=== PATIENT | male | born 2005 ===

== ENCOUNTER 2025-01-15 10:21 | Emergency (ER) | payer OTHER, SELFPAY ==
[2025-01-15] VITALS (11 sets, daily range): BP systolic 119–134; BP diastolic 46–80; PULSE 52–70; RESP 14–20; TEMP 36.6–36.9; O2SAT 95–100; BMI 24.3
--- NOTE | ~2025-01-15 | XR_ITS ---
CLINICAL HISTORY: ? dislocation, wrestling 2 view left shoulder Comparison: None Findings: Anterior inferior left glenohumeral dislocation. No definite fracture. No erosions. No radiopaque foreign body. IMPRESSION: Anterior inferior left glenohumeral dislocation. No evidence of fracture. This document has been electronically signed by: Josse Lozano MD on 01/15/2025 10:57:42
--- NOTE | ~2025-01-15 | XR_ITS ---
CLINICAL HISTORY: Postreduction --- Additional Notes or Special Instructions: EXAM DONE. DR. EDUARDO Peñaloza PPROVED IMAGING. IMAGES UNABLE TO SEND DUE TO NETWORK DOWNTIME 2 view left shoulder Comparison: CR - XR SHOULDER LT MIN 2V - 01/15/25 10:37 EDT Findings: Two films were obtained. The later film demonstrates a normal glenohumeral articulation. No acute fracture. No significant joint space narrowing. No radiopaque foreign body. IMPRESSION: 1. Satisfactory reduction of the glenohumeral dislocation. 2. No acute fracture. This document has been electronically signed by: Arlen Weeks DO on 01/15/2025 14:25:14
--- NOTE | 2025-01-15 11:06 | ED_ITS ---
HPI - Extremity Problem General Chief complaint: Extremity Injury, Upper Stated complaint: dislocated shoulder Time Seen by Provider: 01/15/25 10:54 Source: patient Mode of arrival: ambulatory Limitations: no limitations History of Present Illness ED Provider: DR. Erwin HPI Narrative: 19-year-old male came in for evaluation of the left shoulder dislocation, patient was doing [employer] training and wrestling patient felt popping sensation in the left shoulder after the was not able to move his left shoulder. Never had history of shoulder dislocation in the past. Related Data Allergies Allergy/AdvReac Type Severity Reaction Status Date / Time Penicillins Allergy Hives Verified 01/15/25 10:27 Review of Systems 2 Review of Systems: All other systems are reviewed and are negative Constitutional: Reports as per HPI and Reports no additional constitutional complaints Eyes: Reports as per HPI and Reports no additional eye complaints Reports system reviewed and no additional complaints, except as documented Cardiovascular: Reports as per HPI and Reports no additional cardiovascular complaints Respiratory: Reports as per HPI and Reports no additional respiratory complaints Gastrointestinal: Reports as per HPI and Reports no additional gastrointestinal complaints Genitourinary: Reports no additional female genitourinary complaints Musculoskeletal: Reports no additional musculoskeletal complaints Skin/Breast: Reports system reviewed and no additional complaints, except as docu Psychiatric: Reports no additional psychiatric complaints Endocrine: Reports no additional endocrine complaints Hematologic/Lymphatic: Reports no additional hematologic/lymphatic complaints Allergic/Immunologic: Reports no additional allergic/immunologic complaints Reports system reviewed and no additional complaints, except as documented and Reports Abnormal speech present [facility] Social History Social History Advance Directives: No Advance Directives Information Provided: No Do you have a plan to hurt others: No Plan Physical Exam 2 Vital Signs: Vital Signs: Last Vital Signs Temp 98.4 F 01/15/25 13:24 Pulse 67 01/15/25 13:24 Resp 16 01/15/25 13:24 BP 123/46 L 01/15/25 13:24 Pulse Ox 99 01/15/25 13:24 O2 Del Method Room Air 01/15/25 13:24 Oxygen Flow Rate 100 01/15/25 12:17 BMI result Body Mass Index 24.3 Vital signs have been reviewed and appear to be correct. Blood pressure elevated. Heart rate normal. Respiratory rate normal. Temperature normal. Oxygen saturation normal. Appearance: Alert. Oriented X3. No acute distress. Head: Normal external exam. Normocephalic. Atraumatic. No Nelson signs noted. No raccoon eyes noted Eyes: PERRLA. EOMI. Conjunctiva and sclera normal. Eyelids normal. ENT: TM's Normal. Pharynx normal. Uvula midline. Moist mucous membranes. No trismus noted. No drooling noted. No muffled voice noted. Neck: Normal inspection. Neck supple. FROM. No adenopathy. Thyroid Normal. No meningeal signs. No neck mass noted. CVS: Normal heart rate and rhythm. Heart sound normal. No murmurs noted. Pulses normal throughout. Respiratory: No respiratory distress. Painless inspiration. Breath sounds normal. No wheezes/rales/rhonchi noted. Chest nontender. No accessory muscle usage noted or decreased air movement noted. Abdomen: Soft and nontender. Bowel sounds normal in all 4 quadrants. No distention noted. No organomegaly noted. No visible injury noted. Back: No CVA tenderness. Full range of motion noted. Skin: Skin warm and dry. Normal skin color. Normal skin turgor. No rashes/lesions/lacerations noted. Extremities: Left shoulder: Held in adduction position unable to abduct, anterior fullness, neurovascularly intact. Neuro: Oriented X 3. Cranial nerve exam: II-XII are grossly intact No motor deficit. No sensory deficit. Reflexes normal. Course Reevaluation(s) Reevaluation #1: S/p left shoulder closed reduction with conscious sedation, patient tolerated the procedure well, patient is AAO x3 now, feels better after reduction, patient was placed in shoulder immobilizer NSAIDs, follow-up with ortho. Time: 12:28 Medications Administered Discontinued Medications Generic Name Dose Route Start Last Admin Trade Name Freq PRN Reason Stop Dose Admin Propofol 100 mg 01/15/25 11:08 01/15/25 12:43 Propofol 200 Mg/20 Ml Vial IVPUSH 01/15/25 11:09 100 mg ONCE ONE Administration Medical Decision Making Differential Diagnosis Differential Diagnoses: The differential diagnosis associated with the presentation includes (Left shoulder dislocation, left shoulder fracture, neurovascular compromise.) Admission/Observation Consideration of admission/observation: Escalation of care including admission/observation considered Lab Data MDM Lab Attestation statement: I reviewed the patient's lab results. 01/15/25 11:33 01/15/25 11:33 Labs: Lab Results 01/15/25 Range/Units 11:33 WBC 6.3 (4.8-10.8) X10*3/uL RBC 5.08 (4.60-5.80) X10*6/uL Hgb 14.7 (14.0-18.0) g/dl Hct 43.9 (42.0-52.0) % MCV 86.4 (80.0-98.0) fL MCH 28.9 (27.0-33.0) pg MCHC 33.5 (31.0-36.0) g/dl RDW 12.6 (11.0-16.0) % Plt Count 197 (160-400) X10*3/uL MPV 9.4 (9.4-12.4) fL Immature Gran % (Auto) 0.3 (0.0-0.4) % Neut % (Auto) 54.3 (45-73) % Lymph % (Auto) 33.9 (20-40) % [place]ette % (Auto) 5.6 (2-11) % Eos % (Auto) 5.1 H (0-4) % Baso % (Auto) 0.8 (0-2) % Lymph # (Auto) 2.1 (1.2-4.9) X10*3/uL [place]ette # (Auto) 0.4 (0.1-1.2) X10*3/uL Eos # (Auto) 0.3 (0.0-0.4) X10*3/uL Baso # (Auto) 0.1 (0.0-0.2) X10*3/uL Abs Immat Gran (auto) 0.02 (0.00-0.03) X10*3/uL Absolute Neuts (auto) 3.4 (2.0-8.3) x10*3/uL Absolute Nucleated RBC 0.000 (0.0-0.012) X10*3/uL Nucleated RBC % (auto) 0.0 (0.0-0.2) /100WBC Independent Interpretation I performed an independent interpretation of an: Plain X-Ray (Left shoulder: A anterior-inferior shoulder dislocation with good post reduction x-ray.) Radiology Impression Discussion of test interpretation with radiology: I have reviewed the radiologist's reading. Procedures Orthopedic Joint Reduction Joint #1: Time Out Performed: Yes Side: left Joint Reduction Location: shoulder Analgesia: procedural sedation Shoulder Technique Used (if applicable): traction/counter-traction and scapula manipulation Technique used: direct manipulation Post-reduction neuro exam: intact Post-reduction vascular: intact Post Reduction X-Ray Obtained: Yes Post Reduction X-Ray Results: reduced Splint Applied: Yes Patient Tolerated Procedure: well Procedural Sedation Indication: fracture/dislocation reduction ASA Class: I Mallampati Class: I Time of Last PO Intake: 12:34 Preparation: cardiac cath lab radiology technologist applied, pulse oximeter, capnometry used, supplemental O2 applied and suction/airway equipment at bedside IV Propofol dose (mg): 200 Patient Tolerated Procedure: well Complications: none Discharge Plan Discharge Clinical Impression: Anterior dislocation of left shoulder Patient Disposition: Home, Self-Care Instructions: Shoulder Dislocation (ED) Referrals: Edvin Calvin MD [Physician] - Stand Alone Forms: Work/School Release Interventions: ED Discharge Assessment Last Done: 01/15/25 13:24 Discharge Date/Time: 01/15/25 13:25 Print Language: Barbadian
[2025-01-15 11:38] LABS: MANUAL DIFF FLAG NO
[2025-01-15 11:40] LABS: Basophils Absolute Auto 0.1 X10*3/uL (0.0-0.2); Basophils Percent Auto 0.8 % (0-2); Eosinophils Absolute Auto 0.3 X10*3/uL (0.0-0.4); Eosinophils Percent Auto 5.1 % (0-4); Hematocrit 43.9 % (42.0-52.0); Hemoglobin 14.7 g/dl (14.0-18.0); Imm Gran Abs Auto 0.02 X10*3/uL (0.00-0.03); Imm Gran Pct Auto 0.3 % (0.0-0.4); Lymphocytes Absolute Auto 2.1 X10*3/uL (1.2-4.9); Lymphocytes Percent Auto 33.9 % (20-40); Mean Corpuscular HGB Conc 33.5 g/dl (31.0-36.0); Mean Corpuscular Hemoglobin 28.9 pg (27.0-33.0); Mean Corpuscular Volume 86.4 fL (80.0-98.0); Mean Platelet Volume 9.4 fL (9.4-12.4); Monocytes Absolute Auto 0.4 X10*3/uL (0.1-1.2); Monocytes Percent Auto 5.6 % (2-11); Neutrophils Absolute Auto 3.4 x10*3/uL (2.0-8.3); Neutrophils Percent Auto 54.3 % (45-73); Platelet Count 197 X10*3/uL (160-400); Red Blood Count 5.08 X10*6/uL (4.60-5.80); Red Cell Distribution Width 12.6 % (11.0-16.0); White Blood Count 6.3 X10*3/uL (4.8-10.8)
[2025-01-15] MEDS: propofoL 200 MG/20 ML VIAL 100 MG IVPUSH ×2 (12:43)
== END 2025-01-15 13:25 | disposition home or self-care (01) ==
PROVIDERS: Emergency Provider Emergency Medicine
DX: S43.005A Unspecified dislocation of left shoulder joint, initial encounter (principal); X58.XXXA Exposure to other specified factors, initial encounter; Y93.89 Activity, other specified; Y92.9 Unspecified place or not applicable; Y99.9 Unspecified external cause status
CPT/HCPCS: 36415; 73030; 85025; 96374; 99152; 99283; 99285; J2704

== ENCOUNTER → 2025-01-15 10:30 | Outpatient (BNV) | payer SELFPAY | PROVIDERS: Emergency Provider Emergency Medicine; Visit Provider Radiology Vascular & Interventional Radiology | DX: S43.015A Anterior dislocation of left humerus, initial encounter (principal) | CPT/HCPCS: 73030 ==